=== PATIENT | male | born 1985 | race Caucasian/White ===

== ENCOUNTER 2017-07-14 08:32 | Emergency (ER) | payer BC ==
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
== END 2017-07-14 10:02 | disposition home or self-care (01) ==
LOC: UCCORT 08:32
DX: M62.830 Muscle spasm of back (principal); Z88.0 Allergy status to penicillin
CPT/HCPCS: 99202; G0463